=== PATIENT | female | born 1955 | race Caucasian/White ===

== ENCOUNTER → 2024-05-23 13:49 | Outpatient (REF) | payer MEDICARE, OTHER, SELFPAY | LOC: WDC 13:49 | PROVIDERS: ATTENDING PHYSICIAN Obstetrics & Gynecology Gynecology; FAMILY PHYSICIAN Physician Assistant Medical | DX: Z12.31 Encounter for screening mammogram for malignant neoplasm of breast (principal) | CPT/HCPCS: 77063; 77067 ==

== ENCOUNTER → 2024-07-15 10:59 | Outpatient (REF) | payer MEDICARE, OTHER, SELFPAY | LOC: HWRAD 10:59 | PROVIDERS: ATTENDING PHYSICIAN Physician Assistant Medical | DX: M25.511 Pain in right shoulder (principal) | CPT/HCPCS: 73030 ==

== ENCOUNTER 2024-08-09 08:01 | Outpatient (RCR) | payer MEDICARE, OTHER, SELFPAY | END 2024-08-09 23:59 | disposition home or self-care (01) | LOC: RPT 08:01 | PROVIDERS: ATTENDING PHYSICIAN Physician Assistant Medical | DX: M25.511 Pain in right shoulder (principal); M54.12 Radiculopathy, cervical region; Z73.6 Limitation of activities due to disability | CPT/HCPCS: 97110; 97162 ==

== ENCOUNTER 2024-09-06 10:10 | Outpatient (RCR) | payer MEDICARE, OTHER, SELFPAY | END 2024-09-06 23:59 | disposition home or self-care (01) | LOC: RPT 10:10 | PROVIDERS: ATTENDING PHYSICIAN Physician Assistant Medical | DX: M25.511 Pain in right shoulder (principal); M54.12 Radiculopathy, cervical region; Z73.6 Limitation of activities due to disability | CPT/HCPCS: 97110 ==

== ENCOUNTER → 2024-12-06 12:09 | Outpatient (REF) | payer MEDICARE, OTHER, SELFPAY | LOC: RAD 12:09 | PROVIDERS: ATTENDING PHYSICIAN Physician Assistant Medical | DX: R05.3 Chronic cough (principal) | CPT/HCPCS: 71046 ==

== ENCOUNTER → 2025-01-10 20:02 | Outpatient (REF) | payer MEDICARE, OTHER, SELFPAY | LOC: MRI 3T 20:02 | PROVIDERS: ATTENDING PHYSICIAN Internal Medicine Gastroenterology; FAMILY PHYSICIAN Physician Assistant Medical | DX: K86.2 Cyst of pancreas (principal); D49.0 Neoplasm of unspecified behavior of digestive system | CPT/HCPCS: 74183; A9575 ==